=== PATIENT | male | born 1950 | race Caucasian/White ===

== ENCOUNTER 2016-12-02 17:35 | Inpatient (IN) | payer MEDICARE, OTHER, MEDICAID ==
[~2016-12-02] VITALS: Ht 177.8 cm; Wt 105.6 kg
--- NOTE | 2016-12-03 11:03 | HP ---
ADMIT: 12/02/2016 RM/LOC: [address] [facility] MR#: [id number] [address] [facility] [address] [place] [id number] JOSELIN STEWARD [address] [place] [address] TRUNG History and Physical SEX: M AGE: 66 : 1950 DATE OF SERVICE: CHIEF COMPLAINT: Weakness. HISTORY OF PRESENT ILLNESS: The patient is an absolutely fantastic 66-year- old gentleman, recently established with me in clinic, who has history of CORTEZ with progressive end-stage liver disease and cirrhosis. Recurrent ascites despite a large volume paracentesis. He has really had a worsening course of it since August this year. Increasing weakness. Increasing swelling. He established with Gastroenterology at [place] recently. Was planning on getting a TIPS next week. He reports increasing weakness over the last few days to 5 days. Decreased appetite. Increased abdominal distention. He had a paracentesis with over 4 L off yesterday. Tolerated it reasonably well. Additionally, has more trouble getting around. States he has been eating okay he thinks, but daughter reports sounds like he has been eating less. He is trying to adhere to a 2 L fluid restriction as well as salt restriction. Previous trials of diuretics have worsened his hyponatremia in the past. Otherwise, no fevers. No chills. He has vague diffuse abdominal pain as well as his chronic joint pain for which he has been on chronic narcotics for over a decade. These doses have been stable. The pain is at least 5/10 in his abdomen, but it has been stable for the last few weeks at least. PAST MEDICAL HISTORY: 1. Sleep apnea. 2. CORTEZ. 3. 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 4. Gout. 5. Type 2 diabetes, on insulin. 6. Depression. 7. Chronic kidney disease stage II. 8. History of stroke with left-sided hemiparesis. 9. BPH. 10.Anemia. 11.Coronary artery disease, status post CABG in 2007. SURGICAL HISTORY: CABG, carpal tunnel release, lumbar spine surgery, cholecystectomy, tonsillectomy. FAMILY HISTORY: Significant for mother with pancreatic cancer and Parkinson disease. Diabetes and kidney cancer in his father. Sister with breast cancer. Another sister with stroke and diabetes. SOCIAL HISTORY: Tobacco use: He has history of smoking. No alcohol use regularly. REVIEW OF SYSTEMS: As per HPI. Otherwise, completely reviewed and negative. MEDICATIONS: Please see list for full details. 1. Rifaximin 200 mg p.o. t.i.d., started today which he has not received any ADMIT: 12/02/2016 RM/LOC: [address] [facility] MR#: [id number] [address] [address] [place] [address] TRUNG History and Physical SEX: M AGE: 66 : 1950 dosages. 2. Levemir 10 units daily. 3. NovoLog 7 units with meals as well as sliding scale. 4. Aspirin 81 mg a day. 5. Fluoxetine 20 mg a day. 6. Myrbetriq 50 mg a day. 7. Protonix 40 mg a day. 8. Flomax. 9. Docusate p.r.n. 10.Atorvastatin. 11.Amantadine. 12.Lactulose. 13.Prochlorperazine and hydrocodone 7.5/325 one to two tabs every 4-6 hours. 14.Nitroglycerin p.r.n. 15.Voltaren gel. ALLERGIES: CIPROFLOXACIN, PERCOCET, SEAFOOD, AND IODINE. PHYSICAL EXAMINATION: VITAL SIGNS: Blood pressure 108/64, pulse 70, temperature 36.3, respiratory rate 18, weight is 230 pounds, O2 sats 97% on room air. GENERAL: He is alert, oriented, but he has more difficulty following conversation. Just does not seem to be himself. More confused. At times, he says inappropriate things related to the current conversation at hand. HEENT: Normocephalic, atraumatic. Pupils are equal bilaterally. No icterus. Dry mucous membranes. NECK: No lymphadenopathy. Soft, supple. Trachea midline. LUNGS: Clear to auscultation anteriorly, diminished at bases bilaterally, posteriorly. HEART: Regular rate and rhythm. 1/6 systolic ejection murmur. ABDOMEN: Soft. He is distended. He has some bulging flanks. No guarding. No rigidity. Very mild tenderness throughout. Not severe and unchanged from prior. EXTREMITIES: Got 1+ pitting edema in lower extremity bilaterally. MUSCULOSKELETAL: 5/5 strength in right upper and lower extremity. 4/5 in the left upper extremity and left lower extremity. Poor rapid alternating movements in the left upper extremity. He has asterixis in his right upper extremity. SKIN: He has no rashes noted. PSYCHIATRIC: He is somewhat downtrodden today, but overall, has very well family. LABORATORY AND X-RAY DATA: His labs from the clinic earlier today show a sodium of 121, AST 157, alkaline phosphatase 274. Protein 6, albumin 3.1, BUN 61, creatinine 1.44 which is up from 1.22, potassium is 6.2, carbon dioxide 21, ALT 75. CBC shows a platelets of 225. Hemoglobin of 10.2 and stable. White count 3.7. ADMIT: 12/02/2016 RM/LOC: [address] [facility] MR#: [id number] [facility] [place] [phone] JOSELIN STEWARD [address] [place] [address] TRUNG History and Physical SEX: M AGE: 66 : 1950 ASSESSMENT: 1. Severe hyponatremia, symptomatic. 2. Severe hyperkalemia. 3. Hepatic encephalopathy. 4. End-stage liver disease with cirrhosis secondary to nonalcoholic steatohepatitis. 5. Diabetes type 2. 6. History of stroke. 7. Coronary artery disease. 8. History of hypertension. PLAN: At this point in time, we have really de-escalated his hypertensive regimen that he had in the clinic. Previously was on multiple agents. He was down the clonidine and lisinopril. We stopped these today. We will continue to hold them during hospitalization. I think it is contributing to his relative hypotension and renal hypoperfusion and thus I think is perpetuating his hyponatremia. Likely exacerbated by his large volume paracentesis yesterday. We will try a small dose of Lasix this evening to help out this hyperkalemia as well as his relative hypervolemia, but we will monitor him closely and should he worsen at all, we will give back likely some small amount of hypertonic saline. Again try to do some sodium restriction. He is already on a 2 L fluid restriction. If he can tolerate this well, I think we will adhere to it. Due to his hepatic encephalopathy, we will start some rifaximin. Already on lactulose with reasonably good results at home. We will continue this. See if we get improvement in the encephalopathy. See if he is a candidate for TIPS pending his stabilization from his electrolyte standpoint. He was scheduled for this next week. We will see how he does before then. His LFTs are higher today. We will check an ultrasound of his liver and abdomen in the morning. Medically treat his potassium for now. He was given calcium gluconate. Insulin for his hyperglycemia, and we will just monitor it here again now to see if it has come down. The patient otherwise has reiterated his DNR/DNI status. We will obviously respect this. Given his worsening sodium spontaneously, I think he has overall very poor prognosis, and he and family understand this. We will see if we can get some improvement, however. Petr Calloway MD/ peter JOB #: [id number] CC: Petr Calloway, Attending Physician Petr Calloway, Family Physician
[2016-12-08] MEDS ORDERED: CONSTULOSE10 GM/15 M PO (12:41)
[2016-12-08] MEDS ORDERED: HYDROCODON-ACE1 EAC2 PO (12:41)
[2016-12-08] MEDS ORDERED: COMPAZINE10 MG PO (12:42)
[2016-12-08] MEDS ORDERED: VOLTAREN 1% GE100 GM TP (12:42)
[2016-12-08] MEDS ORDERED: NITROSTAT0.4 MG SL (12:42)
[2016-12-08] MEDS ORDERED: LIPITOR DPS20 MG PO (12:42)
[2016-12-08] MEDS ORDERED: AMANTADINE100 MG PO (12:42)
[2016-12-08] MEDS ORDERED: FLOMAX DPS0.4 MG PO (12:43)
[2016-12-08] MEDS ORDERED: PROTONIX40 MG PO (12:43)
[2016-12-08] MEDS ORDERED: MYRBETRIQ50 MG PO (12:43)
[2016-12-08] MEDS ORDERED: PROZAC DPS20 MG PO (12:43)
[2016-12-08] MEDS ORDERED: LEVEMIR100 UNIT/1 SQ (12:43)
[2016-12-08] MEDS ORDERED: DAILY MULTIPLE1 EAC1 PO (12:44)
[2016-12-08] MEDS ORDERED: NOVOLOG100 UNIT/2 SQ ×2 (12:44→12:46)
[2016-12-08] MEDS ORDERED: ASA CHILDREN'S81 MG PO (12:44)
[2016-12-08] MEDS ORDERED: COUMADIN DPS3 MG PO (12:46)
[2016-12-08] MEDS ORDERED: LOVENOX DP30 MG/0.3 SQ (12:47)
[2016-12-08] MEDS ORDERED: LASIX DPS80 MG PO (12:47)
[2016-12-08] MEDS ORDERED: XIFAXAN200 MG PO (12:47)
--- NOTE | 2016-12-09 08:28 | DS ---
ADMIT: 12/02/2016 RM/LOC: [address] [facility] MR#: [id number] [address] [address] JOSELIN STEWARD [address] [place] [address] TRUNG Discharge Summary SEX: M AGE: 66 : 1950 ADMISSION DATE: 12/02/2016 DISCHARGE DATE: 12/08/2016 CONSULTATIONS: None. PROCEDURES: None. FINAL DIAGNOSES: 1. Hepatic encephalopathy acute. 2. Acute decompensated end-stage liver disease secondary to CORTEZ (nonalcoholic steatohepatitis). 3. Severe hyponatremia. 4. Severe hyperkalemia. 5. Coronary artery disease history. 6. History of hemorrhagic stroke. 7. Diabetes, type 2, on insulin therapy. 8. Left-sided hemiparesis post stroke. REASON FOR ADMISSION: The patient is a very pleasant, 66-year-old gentleman, who presented to the office with increasing weakness and fatigue. More tiredness and confusion. Found to have a sodium of 121, potassium well over 6 and in some hepatic encephalopathy based on exam and history. Admitted for further stabilization. HOSPITAL COURSE: The patient was admitted. Medically treated for his potassium. Given IV diuresis. Held all of his antihypertensives. His sodiums increased slowly on its own and was stable at 133 at time of discharge. Potassium continued to remain on the higher side. Re-dosed with some Kayexalate during hospitalization and it came down and was steady. The patient tolerated IV diuresis well. His abdominal pain and distention were improving at time of discharge. Did not require paracentesis during hospitalization. Did have a subacute portal vein thrombosis as evidenced on ultrasound discovered during hospitalization. After much discussion with family and patient, opted to anticoagulate. [place] that this is quite likely the cause of his relatively acute decompensation over the last few weeks. Started on low-dose Lovenox as well as started back on Coumadin. INR is 1.6 at discharge on 3 mg of Coumadin. The patient otherwise was maintained on the majority of his home medications. We started some of Xifaxan during hospitalization to see if it helps his encephalopathy. Continue on lactulose. His encephalopathy slowly and steadily improved and ultimately cleared. His diabetes was monitored closely. He overall felt safe and stable for discharge to home on day of discharge, feeling dramatically improved from when he was admitted. DISCHARGE INSTRUCTIONS: We discharged to home. He will get an INR and BMP in two days at [facility] and have it faxed to me. We will adjust his Coumadin accordingly. Had been on 2 mg up until two days ago. Now is on 3 mg daily. INR was 1.6 at discharge. Otherwise will hold off on his TIPS procedure he was previously planning on getting until we see how he does now ADMIT: 12/02/2016 RM/LOC: [address] [facility] MR#: [id number] [address] [place] [phone] [place] [address] TRUNG Discharge Summary SEX: M AGE: 66 : 1950 that he can tolerate oral diuretics better. He will remain off his antihypertensives. He will be on Lasix 80 mg daily. He will have a followup with me in four weeks. Otherwise, we discussed with family will see him sooner if his lab work looks at all deranged or worsens clinically. Otherwise, we will likely do therapy services to be arranged upon discharge. Family discussing whether or not to do outpatient therapy versus home health care. They are going to see how he does in the next day or two. The patient is agreeable to plan. DISCHARGE MEDS: Please see discharge MAR, which I fully reviewed. Greater than 35 minutes on day of discharge spent doing discharge day activities including discussion of plan, arrangements of outpatient care and routine discharge activities. Petr Calloway MD/ liborio JOB #: [id number] CC: Petr Calloway MD, Attending Physician Petr Calloway MD, Family Physician Gino Luu MD [address] [place] [id number]
== END 2016-12-08 10:20 | disposition home or self-care (01) | DRG 441 ==
LOC: 4PCU 17:35
PROVIDERS: ADMIT Internal Medicine
DX: K72.90 Hepatic failure, unspecified without coma (principal); I81 Portal vein thrombosis; E11.22 Type 2 diabetes mellitus with diabetic chronic kidney disease; E87.1 Hypo-osmolality and hyponatremia; I69.354 Hemiplegia and hemiparesis following cerebral infarction affecting left non-dominant side; K75.81 Nonalcoholic steatohepatitis (NASH); E87.5 Hyperkalemia; I25.10 Atherosclerotic heart disease of native coronary artery without angina pectoris; K74.60 Unspecified cirrhosis of liver; M25.50 Pain in unspecified joint; G47.30 Sleep apnea, unspecified; N18.2 Chronic kidney disease, stage 2 (mild); N40.0 Benign prostatic hyperplasia without lower urinary tract symptoms; D63.1 Anemia in chronic kidney disease; Z95.1 Presence of aortocoronary bypass graft; Z79.4 Long term (current) use of insulin; Z87.891 Personal history of nicotine dependence; Z66 Do not resuscitate